=== PATIENT | female | born 1985 | race African-American/Black ===

== ENCOUNTER 2016-05-11 13:58 | Emergency (ER) | payer OTHER ==
[2016-05-11 14:51] VITALS: TEMP 98.2; BMI 29.5
[2016-05-11] MEDS ORDERED: SODIUM CHLORIDE 1,000 ML IV STA (17:21)
--- NOTE | 2016-05-11 17:23 | PDOC ---
History of Present Illness - History of Present Illness Initial Comments: 05/11/16 18:15 The patient is a 30 year old female with a past medical hx of thyroid cancer ( spread to lymph nodes) s/p thyroidectomy and lymph node removal who presents to the ED sent by Dr. Gabriel Vaughan for evaluation of epigastric abdominal pain since yesterday. The patient reports her epigastric pain was so severe she wanted to call the ambulance but she went to see her PCP today. The patient reports she had a cholecystectomy in 2011 after . The patient reports she is scheduled for a routine non contrast CT chest tomorrow by her [employer]. Dr. Gabriel Vaughan is concerned for peptic ulcer disease. LMP April 21. The patient denies nausea, vomiting, fever, chills Surgical hx: Thyroidectomy, lymph node removal, PCP: Dr. Gabriel Vaughan <Jes Mayorga - Last Filed: 05/11/16 22:29> <Estela Jacobo - Last Filed: 05/12/16 02:41> - General Chief Complaint: Pain, Acute Stated Complaint: ABD PAIN Time Seen by Provider: 05/11/16 16:26 Past History <Jes Mayorga - Last Filed: 05/11/16 22:29> - Past Medical History Anemia: Yes (hx of) Asthma: No Cancer: Yes (thyroid) Cardiac Disorders: Yes (heart murmur) CVA: No COPD: No CHF: No Dementia: No Diabetes: No GI Disorders: No Disorders: No HTN: No Hypercholesterolemia: No Liver Disease: No Seizures: No Thyroid Disease: No - Surgical History Abdominal Surgery: No Appendectomy: Yes (11/2011) Cardiac Surgery: No Cholecystectomy: Yes (11/2011) Lung Surgery: Yes (resection of rll 11/18 . + for ca) Neurologic Surgery: No Orthopedic Surgery: No - Immunization History Immunization Up to Date: Yes - Psycho/Social/Smoking Cessation Hx Anxiety: No Suicidal Ideation: No Smoking Status: Yes Smoking History: Never smoked Have you smoked in the past 12 months: Yes Number of Cigarettes Smoked Daily: 0 'Breaking Loose' booklet given: 11/26/11 Hx Alcohol Use: Yes (occasion) Drug/Substance Use Hx: No Substance Use Type: None Hx Substance Use Treatment: No <Estela Jacobo - Last Filed: 05/12/16 02:41> - Past Medical History Allergies/Adverse Reactions: Allergies Allergy/AdvReac Type Severity Reaction Status Date / Time No Known Allergies Allergy Verified 05/11/16 14:49 Home Medications: Ambulatory Orders Levothyroxine [Synthroid -] 175 mcg PO DAILY@0700 05/30/14 Tramadol HCl 50 mg PO BID PRN 05/11/16 Review of Systems - Review of Systems Able to Perform ROS?: Yes Comments:: 05/11/16 18:16 CONSTITUTIONAL: Absent: fever, chills, diaphoresis, generalized weakness, malaise, loss of appetite HEENT: Absent: rhinorrhea, nasal congestion, throat pain, throat swelling, difficulty swallowing, mouth swelling, ear pain, eye pain, visual Changes CARDIOVASCULAR: Absent: chest pain, syncope, palpitations, irregular heart rate, lightheadedness , peripheral edema RESPIRATORY: Absent: cough, shortness of breath, dyspnea with exertion, orthopnea, wheezing, stridor, hemoptysis GASTROINTESTINAL: +Epigastric pain. Absent: abdominal distension, nausea, vomiting, diarrhea, constipation, melena, hematochezia GENITOURINARY: Absent: dysuria, frequency, urgency, hesitancy, hematuria, flank pain, genital pain MUSCULOSKELETAL: Absent: myalgia, arthralgia, joint swelling SKIN: Absent: rash, itching, pallor HEMATOLOGIC/IMMUNOLOGIC: Absent: easy bleeding, easy bruising, lymphadenopathy, frequent infections ENDOCRINE: Absent: unexplained weight gain, unexplained weight loss, heat intolerance, cold intolerance NEUROLOGIC: Absent: headache, focal weakness or paresthesias, dizziness, unsteady gait, seizure, mental status changes, bladder or bowel incontinence PSYCHIATRIC: Absent: anxiety, depression, suicidal or homicidal ideation, hallucinations. <Jes Mayorga - Last Filed: 05/11/16 22:29> *Physical Exam - Vital Signs Last Vital Signs Temp Pulse Resp BP Pulse Ox 98.2 F 100 H 19 115/69 98 05/11/16 14:49 05/11/16 14:49 05/11/16 14:49 05/11/16 14:49 05/11/16 14:49 - Physical Exam Comments: 05/11/16 18:16 GENERAL: Well developed, well nourished. Awake and alert. No acute distress. HEENT: Normocephalic, atraumatic. PERRLA, EOMI. No conjunctival pallor. Sclera are non- icteric. Moist mucous membranes. Oropharynx is clear. NECK: Supple. Full ROM. No JVD. Carotid pulses 2+ and symmetric, without bruits. No thyromegaly. No lymphadenopathy. CARDIOVASCULAR: Regular rate and rhythm. No murmurs, rubs, or gallops. Distal pulses are 2+ and symmetric. PULMONARY: No evidence of respiratory distress. Lungs clear to auscultation bilaterally. No wheezing, rales or rhonchi. ABDOMINAL: +Tenderness to palpation RLQ, guarding, rebound. Soft. Non-distended. No organomegaly. Normoactive bowel sounds. MUSCULOSKELETAL Normal range of motion at all joints. No bony deformities or tenderness. No CVA tenderness. EXTREMITIES: No cyanosis. No clubbing. No edema. No calf tenderness. SKIN: Warm and dry. Normal capillary refill. No rashes. No jaundice. NEUROLOGICAL: Alert, awake, appropriate. Cranial nerves 2-12 intact. No deficits to light touch and temperature in face, upper extremities and lower extremities. No motor deficits in the in face, upper extremities and lower extremities. PSYCHIATRIC: Cooperative. Good eye contact. Appropriate mood and affect. <Jes Mayorga - Last Filed: 05/11/16 22:29> - Vital Signs Last Vital Signs Temp Pulse Resp BP Pulse Ox 98.2 F 100 H 19 115/69 98 05/11/16 14:49 05/11/16 14:49 05/11/16 14:49 05/11/16 14:49 05/11/16 14:49 <Estela Jacobo - Last Filed: 05/12/16 02:41> ED Treatment Course - LABORATORY CBC & Chemistry Diagram: 05/11/16 17:30 05/11/16 19:30 - ADDITIONAL ORDERS Additional order review: Laboratory Results 05/11/16 17:30 Serum , Qual Negative <Jes Mayorga - Last Filed: 05/11/16 22:29> - LABORATORY CBC & Chemistry Diagram: 05/11/16 17:30 05/11/16 19:30 <Estela Jacobo - Last Filed: 05/12/16 02:41> Medical Decision Making - Medical Decision Making 05/11/16 22:[address] Gabriel Vaughan. Discussed the patients case with Dr. Vaughan <Jes Mayorga - Last Filed: 05/11/16 22:29> - Medical Decision Making 05/11/16 18:05 30 yo female p/w one day of epigsatric pain -she was examined by Dr Gabriel Vaughan earlier today an he was concerned about PUD because she has been on 1600mg motrin for the epigastric pain -pt denies fever,chills,diarrhea or vomiting -however when I exaomed her ,she has reboumnd tenderness in rt lower quadrant diff dig include appendicitis , possible ruptured ovarian cyst plan - preg test,UA,cbc,comp,lipase,protonix,ct scan and/pel She is scheduled tomorrow for a CT non contrast of chest that was requested by her grazing examiner 05/12/16 02:[address] scan abd /pelvic - no evidence of appendicitis, but there was a right ovarian cyst and blood in the cul de sac plan pt will f/u with train caller <Estela Jacobo - Last Filed: 05/12/16 02:41> *DC/Admit/Observation/Transfer - Attestations Scribe Attestion: 05/11/16 18:16 Documentation prepared by Jes Mayorga, acting as medical insurance coder for Estela Jacobo MD/DO. <Jes Mayorga - Last Filed: 05/11/16 22:29> <Estela Jacobo - Last Filed: 05/12/16 02:41> Diagnosis at time of Disposition: Abdominal pain Qualifiers: Abdominal location: right lower quadrant Qualified Code(s): R10.31 - Right lower quadrant pain Ovarian cyst Qualifiers: Laterality: right Qualified Code(s): N83.201 - Unspecified ovarian cyst, right side - Discharge Dispostion Disposition: HOME Condition at time of disposition: Stable - Referrals Referrals: Gabriel Vaughan MD [Primary Care Provider] - - Patient Instructions Printed Discharge Instructions: Ovarian Cyst, DI for Ovarian Cyst Additional Instructions: please follow up with your manager ob Please see Dr Gabriel Vaughan later this week
[2016-05-11] MEDS ORDERED: PANTOPRAZOLE SODIUM 40 MG in SODIUM CHLORIDE 100 ML IVPB ONE (17:26)
[2016-05-11 17:53] LABS: BASOPHIL 0.9 % (0-2.0); EOSINOPHIL 0.8 % (0-4.5); MCH 31.1 pg (25.7-33.7); MCHC 34.1 g/dl (32.0-36.0); MEAN CELL VOLUME 91.2 fl (80-96); MEAN PLT VOLUME 8.4 fl (7.5-11.1); PLATELET COUNT 224 K/MM3 (134-434); RDW 12.2 % (11.6-15.6); WHITE BLOOD COUNT 2.5 K/mm3 (4.0-10.0)
[2016-05-11] MEDS ORDERED: PANTOPRAZOLE SODIUM 100 ML IVPB ONE ×2 (18:12→18:13)
[2016-05-11 18:14] LABS: URINE APPEARANCE SLCLOUDY; URINE BILIRUBIN NEGATIVE (NEGATIVE); URINE BLOOD NEGATIVE (NEGATIVE); URINE COLOR YELLOW; URINE GLUCOSE (UA) NEGATIVE (NEGATIVE); URINE KETONE NEGATIVE (NEGATIVE); URINE LEUK ESTERASE NEGATIVE (NEGATIVE); URINE NITRITE NEGATIVE (NEGATIVE); URINE PROTEIN NEGATIVE (NEGATIVE); URINE UROBILINOGEN NEGATIVE E.U./dl (0.2-1.0)
[2016-05-11 20:07] LABS: ALBUMIN 3.7 g/dl (3.4-5.0); ALK PHOS 81 U/L (45-117); ANION GAP 7 (8-16); BILIRUBIN,TOTAL 0.3 mg/dL (0.2-1.0); CALCIUM 8.4 mg/dL (8.5-10.1); CO2 27 mmol/L (21-32); CREATININE 0.6 mg/dL (0.55-1.02); GLUCOSE,RANDOM 84 mg/dL (74-106); SGOT/AST 21 U/L (15-37); SGPT/ALT 37 U/L (12-78); TOT PROT 7.7 g/dl (6.4-8.2)
[2016-05-11 23:34] VITALS: BP 122/75; PULSE 76
== END 2016-05-11 22:38 | disposition home or self-care (01) ==
LOC: JER 13:58
PROC: 3E0337Z Introduction of Electrolytic and Water Balance Substance into Peripheral Vein, Percutaneous Approach (ICD-10-PCS; principal; 2016-05-11)
PROC: 3E033GC Introduction of Other Therapeutic Substance into Peripheral Vein, Percutaneous Approach (ICD-10-PCS; 2016-05-11)
DX: N83.201 Unspecified ovarian cyst, right side (principal)
CPT/HCPCS: 36415; 71250-TC; 74177-TC; 80053; 81003; 83690; 84703; 85025; 99283-25; Q9967